=== PATIENT | female | born 1965 | race Caucasian/White ===

== ENCOUNTER 2018-07-21 10:20 | Emergency (ER) | payer MEDICARE ==
--- NOTE | 2018-07-21 11:13 | ER Document Report ---
ED Medical Screen (RME) - General Chief Complaint: Bloody Stools Stated Complaint: BLOOD IN STOOL/ABDOMINAL PRESSURE Time Seen by Provider: 07/21/18 10:26 Notes: 53-year-old female to the emergency department complaining of diffuse abdominal pain. Started yesterday. Continues today. Had several episodes of bloody stools today as well. No prior history of colon cancer. No prior history of diverticulitis. I have greeted and performed a rapid initial assessment of this patient. A comprehensive ED assessment and evaluation of the patient, analysis of test results and completion of the medical decision making process will be conducted by additional ED providers. TRAVEL OUTSIDE OF THE [place] IN LAST 30 DAYS: No - Related Data Allergies/Adverse Reactions: No Known Allergies Allergy (Unverified 07/21/18 10:24) Past Medical History - Social History Chew tobacco use (# tins/day): No Frequency of alcohol use: None Drug Abuse: None Renal/ Medical History: Denies: Hx Peritoneal Dialysis GI Medical History: Reports: Hx Gastroesophageal Reflux Disease Musculoskeltal Medical History: Reports Hx Arthritis Past Surgical History: Reports: Hx Genitourinary Surgery - bladder tac, Hx Hysterectomy Physical Exam - Vital signs Vitals: Temp Pulse Resp BP Pulse Ox 98.1 F 71 20 130/75 H 95 07/21/18 10:56 07/21/18 10:56 07/21/18 10:56 07/21/18 10:56 07/21/18 10:56 Course - Vital Signs Vital signs: Temp Pulse Resp BP Pulse Ox 98.1 F 71 20 130/75 H 95 07/21/18 10:56 07/21/18 10:56 07/21/18 10:56 07/21/18 10:56 07/21/18 10:56
[2018-07-21 11:40] LABS: ABSOLUTE BASOPHILS # (AUTO) 0.1 10^3/uL (0.0-0.2); ABSOLUTE EOSINOPHILS # (AUTO) 0.2 10^3/uL (0.0-0.6); ABSOLUTE LYMPHOCYTES (AUTO) 2.5 10^3/uL (0.5-4.7); ABSOLUTE MONOCYTES (AUTO) 0.8 10^3/uL (0.1-1.4); ABSOLUTE NEUT (AUTO) 6.3 10^3/uL (1.7-8.2); BASOPHILS % (AUTO) 0.7 % (0-2); EOSINOPHILS % (AUTO) 2.3 % (0-6); HEMOGLOBIN 14.9 g/dL (12.0-15.5); MEAN CORPUSCULAR HEMOGLOBIN 32.6 pg (27.0-33.4); MEAN CORPUSCULAR HGB CONC 33.9 g/dL (32.0-36.0); MEAN CORPUSCULAR VOLUME 96 fl (80-97); PLATELET COUNT 265 10^3/uL (150-450); RED BLOOD COUNT 4.57 10^6/uL (3.72-5.28); RED CELL DISTRIBUTION WIDTH 14.9 % (11.5-14.0); TOTAL CELLS COUNTED % (AUTO) 100 %; WHITE BLOOD COUNT 9.9 10^3/uL (4.0-10.5)
[2018-07-21 11:56] LABS: APPEARANCE,URINE CLEAR; BILIRUBIN,URINE NEGATIVE (NEGATIVE); COLOR,URINE STRAW; GLUCOSE, URINE NEGATIVE (NEGATIVE); KETONES,URINE NEGATIVE (NEGATIVE); LEUKOCYTE ESTERASE,URINE NEGATIVE (NEGATIVE); NITRITE,URINE NEGATIVE (NEGATIVE); PROTEIN,URINE NEGATIVE (NEGATIVE); URINE SPECIFIC GRAVITY 1.003; UROBILINOGEN,URINE NEGATIVE mg/dL (<2.0)
[2018-07-21 11:57] LABS: ALANINE AMINOTRANSFERASE 16 U/L (9-52); ALBUMIN 4.6 g/dL (3.5-5.0); ALKALINE PHOSPHATASE 96 U/L (38-126); ANION GAP 11 (5-19); ASPARTATE AMINO TRANSFERASE 21 U/L (14-36); BILIRUBIN,DIRECT 0.2 mg/dL (0.0-0.4); BILIRUBIN,TOTAL 0.4 mg/dL (0.2-1.3); BLOOD UREA NITROGEN 10 mg/dL (7-20); CALCIUM 10.1 mg/dL (8.4-10.2); CARBON DIOXIDE 28 mmol/L (22-30); CHLORIDE 108 mmol/L (98-107); GLUCOSE 93 mg/dL (75-110); LIPASE 263.1 U/L (23-300); POTASSIUM 4.4 mmol/L (3.6-5.0); SODIUM 147.4 mmol/L (137-145); TOTAL PROTEIN 7.4 g/dL (6.3-8.2)
--- NOTE | 2018-07-21 14:18 | RADIOLOGY REPORT (SQ) ---
EXAM DESCRIPTION: CT ABD/PELVIS WITH IV ORAL COMPLETED DATE/TIME: 07/21/2018 2:00 pm REASON FOR STUDY: diffuse abd pain and rectal bleeding COMPARISON: None. TECHNIQUE: CT scan of the abdomen and pelvis performed using helical scanning technique with dynamic intravenous contrast injection. With oral contrast. Images reviewed with lung, soft tissue, and bon e windows. Reconstructed coronal and sagittal MPR images reviewed. Delayed images for evaluation of t he urinary system also acquired. All images stored on PACS. All CT scanners at this facility use dose modulation, iterative reconstruction, and/or weight based d osing when appropriate to reduce radiation dose to as low as reasonably achievable (ALARA). [facility]: Dose Right [facility]: CareDose [facility]: Dose Right [facility]: Teradose 4D [facility]: RayV CONTRAST TYPE AND DOSE: contrast/concentration: Isovue 350.00 mg/ml; Total Contrast Delivered: 98.0 ml; Total Saline Delivered: 70.0 ml RENAL FUNCTION: GFR > 60. RADIATION DOSE: CT Rad equipment meets quality standard of care and radiation dose reduction techniq ues were employed. CTDIvol: 17.5 - 19.8 mGy. DLP: 2153 mGy-cm.. LIMITATIONS: None. FINDINGS: LOWER CHEST: 4.5 mm pulmonary nodule left base. LIVER: Normal size. No masses. No dilated ducts. SPLEEN: Normal size. No focal lesions. PANCREAS: No masses. No significant calcifications. No adjacent inflammation or peripancreatic fluid collections. Pancreatic duct not dilated. GALLBLADDER: No identified stones by CT criteria. No inflammatory changes to suggest cholecystitis. ADRENAL GLANDS: No significant masses or asymmetry. RIGHT KIDNEY AND URETER: No solid masses. No significant calcifications. No hydronephrosis or hyd roureter. LEFT KIDNEY AND URETER: No solid masses. No significant calcifications. No hydronephrosis or hydr oureter. AORTA AND VESSELS: No aneurysm. No dissection. Renal arteries, SMA, celiac without stenosis. RETROPERITONEUM: No retroperitoneal adenopathy, hemorrhage or masses. BOWEL AND PERITONEAL CAVITY: No masses or inflammatory changes. No free fluid or peritoneal masses. APPENDIX: Normal. PELVIS: No mass. No free fluid. Normal bladder. ABDOMINAL WALL: No masses. No hernias. BONES: No significant or acute findings. OTHER: No other significant finding. IMPRESSION: NO SIGNIFICANT OR ACUTE FINDING IN THE ABDOMEN OR PELVIS ON CT SCAN WITH IV and oral CON TRAST. 4.5 mm pulmonary nodule left base. TECHNICAL DOCUMENTATION: JOB ID: [id number] Quality ID # [id number]: Final reports with documentation of one or more dose reduction techniques (e.g., Au tomated exposure control, adjustment of the mA and/or kV according to patient size, use of iterative reconstruction technique) 2010 [employer]- All Rights Reserved Reading location - IP/workstation name: [email or web address]
--- NOTE | 2018-07-21 15:10 | ER Document Report ---
ED General - General Chief Complaint: Bloody Stools Stated Complaint: BLOOD IN STOOL/ABDOMINAL PRESSURE Time Seen by Provider: 07/21/18 10:26 TRAVEL OUTSIDE OF THE [place] IN LAST 30 DAYS: No - HPI Patient complains to provider of: Blood in stool abdominal pressure Notes: Patient coming in for evaluation of of blood in her stool and abdominal pressure. Patient does state that he recently returned from a cruise going to [place] and to the [facility]. Patient significant other endorses having some diarrhea however this is nonbloody. Patient states mostly abdominal cramping and blood in her stools stool was hard with blood patient does have history of hemorrhoids. Patient otherwise is resting comfortably upon my evaluation denies any fevers chills nausea vomiting denies overt diarrhea. Patient states colonoscopy approximately over 5 years ago with no critical findings found - Related Data Allergies/Adverse Reactions: No Known Allergies Allergy (Unverified 07/21/18 10:24) Past Medical History - Social History Smoking Status: Current Every Day Smoker Chew tobacco use (# tins/day): No Frequency of alcohol use: None Drug Abuse: None Family History: Reviewed & Not Pertinent Patient has suicidal ideation: No Patient has homicidal ideation: No Renal/ Medical History: Denies: Hx Peritoneal Dialysis GI Medical History: Reports: Hx Gastroesophageal Reflux Disease Musculoskeletal Medical History: Reports Hx Arthritis Past Surgical History: Reports: Hx Genitourinary Surgery - bladder tac, Hx Hysterectomy Review of Systems - Review of Systems Constitutional: No symptoms reported EENT: No symptoms reported Cardiovascular: No symptoms reported Respiratory: No symptoms reported Gastrointestinal: Abdominal pain Genitourinary: No symptoms reported Female Genitourinary: No symptoms reported Musculoskeletal: No symptoms reported Skin: No symptoms reported Hematologic/Lymphatic: No symptoms reported Neurological/Psychological: No symptoms reported -: Yes All other systems reviewed and negative Physical Exam - Vital signs Vitals: Temp Pulse Resp BP Pulse Ox 98.1 F 71 20 130/75 H 95 07/21/18 10:56 07/21/18 10:56 07/21/18 10:56 07/21/18 10:56 07/21/18 10:56 Interpretation: Normal - General General appearance: Appears well, Alert - HEENT Head: Normocephalic, Atraumatic Eyes: Normal Pupils: PERRL - Respiratory Respiratory status: No respiratory distress Chest status: Nontender Breath sounds: Normal Chest palpation: Normal - Cardiovascular Rhythm: Regular Heart sounds: Normal auscultation Murmur: No - Abdominal Inspection: Normal Distension: No distension Bowel sounds: Normal Tenderness: Nontender Organomegaly: No organomegaly - Rectal Notes: Multiple hemorrhoids seen - Back Back: Normal, Nontender - Extremities General upper extremity: Normal inspection, Nontender, Normal color, Normal ROM , Normal temperature General lower extremity: Normal inspection, Nontender, Normal color, Normal ROM , Normal temperature, Normal weight bearing. No: Treasure's sign - Neurological Neuro grossly intact: Yes Cognition: Normal Orientation: AAOx4 [employer] Coma Scale Eye Opening: Spontaneous [place] Coma Scale Verbal: Oriented [employer] Coma Scale Motor: Obeys Commands Calin Coma Scale Total: 15 Speech: Normal Motor strength normal: LUE, RUE, LLE, RLE Sensory: Normal - Psychological Associated symptoms: Normal affect, Normal mood - Skin Skin Temperature: Warm Skin Moisture: Dry Skin Color: Normal Course - Re-evaluation Re-evalutation: 07/21/18 18:56 Hemoglobin stable at this time. Patient with no further bloody bowel movements here in the ER. CT scans not show any significant pathology. I highly recommend that the patient follow-up with gastroenterology more likely viral illness for the cause of her abdominal pain and more likely bleeding coming from hemorrhoids. Recommended hemorrhoid cream along with Bentyl patient states understanding agrees this plan discharged home. - Vital Signs Vital signs: Temp Pulse Resp BP Pulse Ox 97.6 F 62 16 108/76 98 07/21/18 15:10 07/21/18 15:10 07/21/18 15:10 07/21/18 15:10 07/21/18 15:10 - Laboratory Result Diagrams: 07/21/18 11:25 07/21/18 11:25 Laboratory results interpreted by me: 07/21/18 07/21/18 07/21/18 11:25 11:25 11:25 RDW 14.9 H Sodium 147.4 H Chloride 108 H Urine Blood MODERATE H Discharge - Discharge Clinical Impression: Blood in stool, Acute hemorrhoid Abdominal pain Qualifiers: Abdominal location: generalized Qualified Code(s): R10.84 - Generalized abdominal pain Condition: Good Disposition: HOME, SELF-CARE Instructions: Abdominal Pain ([facility]), Diarrhea, Nonspecific ([facility]), Family Physicians / Practices, Gastroenterology, [facility] Hemorrhoid Cream ([facility]), Hemorrhoids ([facility]), Rectal Bleeding, Unclear Cause ([facility]) Additional Instructions: At this time your CAT scan does not show any signs of acute infection no diverticulitis no colitis. Your blood work does not show any signs of infectious etiology for your abdominal pain also shows a normal hemoglobin. Your physical examination does show significant amount of hemorrhoids around the anal region which may likely be the cause of some of the blood that you are seeing when you have a bowel movement. I do believe he probably have a viral cause of your stomach pain due to your recent trip. I recommend starting often [id number] Preparation H to treat her hemorrhoids. If you continue to have pain with defecation in the next 48-72 hours would recommend having the prescription filled. Also recommend taking [id number] stool softener. He can take Tylenol Motrin for your abdominal pain. Bentyl for abdominal cramps. Follow-up with a primary care physician and [facility] administrator Prescriptions: Dicyclomine HCl [Bentyl 20 mg Tablet] 20 mg PO QID #40 tablet Hydrocortisone/Pramoxine [Analpram Hc 2.5% Cream] 30 gm RC BID #1 cream.appl
[2018-07-21 15:14] VITALS: BP 108/76
== END 2018-07-21 15:21 | disposition home or self-care (01) ==
LOC: ER 10:20
DX: K92.1 Melena (principal); K64.9 Unspecified hemorrhoids; R10.84 Generalized abdominal pain; R19.8 Other specified symptoms and signs involving the digestive system and abdomen; F17.200 Nicotine dependence, unspecified, uncomplicated
CPT/HCPCS: 36415; 74177; 80053; 81001; 83690; 85025; 99284

== ENCOUNTER 2018-07-30 23:17 | Emergency (ER) | payer MEDICARE ==
[2018-07-31] MEDS ORDERED: DEXAMETHASONE SOD PHOS INJ 10 MG/1 ML VIAL IM ONE (00:14)
[2018-07-31] MEDS ORDERED: KETOROLAC TROMETHAMINE 60 MG/2 ML SDV IM ONE (00:14)
--- NOTE | 2018-07-31 00:16 | ER Document Report ---
HPI - HPI Patient complains to provider of: right shoulder pain Time Seen by Provider: 07/31/18 00:07 Onset: Other - 2 days Onset/Duration: Sudden Quality of pain: Achy, Throbbing Severity: Severe Pain Level: 4 Context: Patient presents emergency department with complaints of right shoulder pain. Patient reports she was laying on the couch leaning on her arm when all of a sudden her shoulder started hurting. Denies trauma. Denies fever vomiting diarrhea. Reports the pain is severe in her right shoulder and runs down past her elbow to her hand. Patient reports pain with any movement. Denies past history of trauma. Patient is right-hand dominant. Reports she is taking over- the-counter pain medication along with her hydrocodone for the pain and nothing is helped. Associated Symptoms: None Exacerbated by: Movement Relieved by: Denies Similar symptoms previously: No Recently seen / treated by doctor: No Past Medical History - General Information source: Patient Last Menstrual Period: Nephrectomy - Social History Smoking Status: Current Every Day Smoker Cigarette use (# per day): Yes Frequency of alcohol use: None Drug Abuse: None Lives with: Family Family History: Reviewed & Not Pertinent Patient has suicidal ideation: No Patient has homicidal ideation: No - Medical History Medical History: Other - Regional pain syndrome Renal/ Medical History: Denies: Hx Peritoneal Dialysis GI Medical History: Reports: Hx Gastroesophageal Reflux Disease Musculoskeletal Medical History: Reports Hx Arthritis Past Surgical History: Reports: Hx Genitourinary Surgery - bladder tac, Hx Hysterectomy Vertical Provider Document - CONSTITUTIONAL Agree With Documented VS: Yes Exam Limitations: No Limitations General Appearance: WD/WN, No Apparent Distress - Winces when the arm is moved - INFECTION CONTROL TRAVEL OUTSIDE OF THE [place] IN LAST 30 DAYS: No - HEENT HEENT: Atraumatic, Normocephalic - NECK Neck: Normal Inspection, Supple - RESPIRATORY Respiratory: No Respiratory Distress - CARDIOVASCULAR Cardiovascular: Regular Rate - MUSCULOSKELETAL/EXTREMETIES Musculoskeletal/Extremeties: Tender - pt complains of pain with any type of movement to her right arm. supination/ pronation, no erythema no swelling no warmth good radial pulse, no obvious deformity she reports she cannot actively move her arm above her head, arm passively moved above her head, neg drop arm, pt able to smoothly lower her arm - NEURO Level of Consciousness: Awake, Alert, Appropriate - DERM Adult Front & Back Diagram: 1 - reports ttp and movement Course - Re-evaluation Re-evalutation: 07/31/18 00:22 She is new to the area. She was instructed on orthopedics to follow-up with. She was also instructed to follow-up with her primary care provider. She will be treated with Toradol and a shot of Decadron for pain. She verbalized understanding for all instructions Dictation of this chart was performed using voice recognition software; therefore, there may be some unintended grammatical errors. - Vital Signs Vital signs: Temp Pulse Resp BP Pulse Ox 97.6 F 69 16 124/79 98 07/30/18 23:57 07/30/18 23:57 07/30/18 23:57 07/30/18 23:57 07/30/18 23:57 Discharge - Discharge Clinical Impression: Right shoulder pain Qualifiers: Chronicity: acute Qualified Code(s): M25.511 - Pain in right shoulder Condition: Stable Disposition: HOME, SELF-CARE Instructions: Steroid Medication Injection, Toradol Injection ([facility]) Additional Instructions: *You have been evaluated for right shoulder pain *Rest your shoulder, ice packs- 20 minutes on, 20 minutes off *Follow up with orthopedics tomorrow-call for an appointment *Take your pain medication as prescribed *Return to ED for worsening condition, changes, needs Referrals: [facility] [Provider Group] - Follow up tomorrow
[2018-07-31 02:24] VITALS: BP 114/75
== END 2018-07-31 01:00 | disposition home or self-care (01) ==
LOC: ER 23:17
DX: M25.511 Pain in right shoulder (principal); F17.210 Nicotine dependence, cigarettes, uncomplicated
CPT/HCPCS: 99283; 96372; J1885; J1100

== ENCOUNTER 2019-02-11 18:45 | Emergency (ER) | payer MEDICARE ==
--- NOTE | 2019-02-11 20:23 | ER Document Report ---
ED Medical Screen (RME) - General Chief Complaint: Abdominal Pain Stated Complaint: BACK PAIN Time Seen by Provider: 02/11/19 20:16 Notes: 53 year old female chief complaint of worsening swelling and pain of the abdomen with developing pain in her flank on both sides for the past 5 days or so. States swelling significantly increased today. Denies vomiting, had a loose bowel movement this morning, denies fever. History includes tubal ligation, hysterectomy, denies abdominal surgeries otherwise. TRAVEL OUTSIDE OF THE [place] IN LAST 30 DAYS: No - Related Data Allergies/Adverse Reactions: No Known Allergies Allergy (Unverified 07/21/18 10:24) Past Medical History - Social History Frequency of alcohol use: None Drug Abuse: None Renal/ Medical History: Denies: Hx Peritoneal Dialysis GI Medical History: Reports: Hx Gastroesophageal Reflux Disease Musculoskeltal Medical History: Reports Hx Arthritis Past Surgical History: Reports: Hx Genitourinary Surgery - bladder tac, Hx Hysterectomy, Hx Tubal Ligation Physical Exam - Vital signs Vitals: Temp Pulse Resp BP Pulse Ox 98.4 F 83 18 137/73 H 96 02/11/19 18:49 02/11/19 18:49 02/11/19 18:49 02/11/19 18:49 02/11/19 18:49 - Abdominal Distension: Distended Tenderness: Tender - Generalized mid abdominal tenderness without specific area of guarding. No noted hernia/incarcerated hernia Course - Re-evaluation Re-evalutation: I have greeted and performed a rapid initial assessment of this patient. A comprehensive ED assessment and evaluation of the patient, analysis of test results and completion of the medical decision making process will be conducted by additional ED providers. - Vital Signs Vital signs: Temp Pulse Resp BP Pulse Ox 98.4 F 83 18 137/73 H 96 02/11/19 18:49 02/11/19 18:49 02/11/19 18:49 02/11/19 18:49 02/11/19 18:49
[2019-02-11 21:05] LABS: AMORPHOUS SEDIMENT,URINE TRACE /HPF; APPEARANCE,URINE CLOUDY; BILIRUBIN,URINE NEGATIVE (NEGATIVE); COLOR,URINE YELLOW; GLUCOSE, URINE NEGATIVE (NEGATIVE); KETONES,URINE NEGATIVE (NEGATIVE); LEUKOCYTE ESTERASE,URINE NEGATIVE (NEGATIVE); NITRITE,URINE NEGATIVE (NEGATIVE); PROTEIN,URINE NEGATIVE (NEGATIVE); URINE SPECIFIC GRAVITY 1.024; UROBILINOGEN,URINE NEGATIVE mg/dL (<2.0)
--- NOTE | 2019-02-11 21:05 | RADIOLOGY REPORT (SQ) ---
EXAM DESCRIPTION: [facility]: XR ABDOMEN SUPINE AND ERECT WITH CHEST (ABD ACUTE SERIES) Views: 3 CLINICAL HISTORY: 53 years Female, abd swelling and pain COMPARISON: None. FINDINGS: AP Chest: Lungs are clear without infiltrate, effusion, pneumothorax. Mediastinum is within normal limits for positioning. No acute bone findings. Supine and erect AP abdomen: Bowel gas pattern is normal, with no air-fluid levels or small bowel distention. No free intraperitoneal air. No suspicious calcifications. IMPRESSION: 1. No acute findings.
[2019-02-11 21:56] LABS: ABSOLUTE BASOPHILS # (AUTO) 0.1 10^3/uL (0.0-0.2); ABSOLUTE EOSINOPHILS # (AUTO) 0.2 10^3/uL (0.0-0.6); ABSOLUTE LYMPHOCYTES (AUTO) 3.8 10^3/uL (0.5-4.7); ABSOLUTE MONOCYTES (AUTO) 0.9 10^3/uL (0.1-1.4); ABSOLUTE NEUT (AUTO) 4.7 10^3/uL (1.7-8.2); BASOPHILS % (AUTO) 1.2 % (0-2); EOSINOPHILS % (AUTO) 2.5 % (0-6); HEMATOCRIT 43.2 % (36.0-47.0); HEMOGLOBIN 14.7 g/dL (12.0-15.5); LYMPHOCYTES % (AUTO) 39.3 % (13-45); MEAN CORPUSCULAR HGB CONC 34.1 g/dL (32.0-36.0); MEAN CORPUSCULAR VOLUME 94 fl (80-97); MONOCYTES % (AUTO) 8.8 % (3-13); PLATELET COUNT 253 10^3/uL (150-450); RED BLOOD COUNT 4.59 10^6/uL (3.72-5.28); SEGMENTED NEUTROPHILS % (AUTO) 48.2 % (42-78); TOTAL CELLS COUNTED % (AUTO) 100 %; WHITE BLOOD COUNT 9.7 10^3/uL (4.0-10.5)
[2019-02-11 22:15] LABS: ALANINE AMINOTRANSFERASE 17 U/L (9-52); ALBUMIN 4.3 g/dL (3.5-5.0); ALKALINE PHOSPHATASE 86 U/L (38-126); ANION GAP 8 (5-19); ASPARTATE AMINO TRANSFERASE 21 U/L (14-36); BILIRUBIN,DIRECT 0.3 mg/dL (0.0-0.4); BILIRUBIN,TOTAL 0.4 mg/dL (0.2-1.3); BLOOD UREA NITROGEN 16 mg/dL (7-20); CALCIUM 9.6 mg/dL (8.4-10.2); CARBON DIOXIDE 29 mmol/L (22-30); CHLORIDE 107 mmol/L (98-107); GLUCOSE 87 mg/dL (75-110); LIPASE 397.1 U/L (23-300); POTASSIUM 4.4 mmol/L (3.6-5.0); SODIUM 144.4 mmol/L (137-145); TOTAL PROTEIN 6.8 g/dL (6.3-8.2)
[2019-02-11] MEDS ORDERED: FAMOTIDINE 20 MG TABLET PO ONE (22:32)
[2019-02-11] MEDS ORDERED: LIDOCAINE 2% VISCOUS SOLN 20 ML UDCUP PO ONE (22:32)
[2019-02-11] MEDS ORDERED: MAG HYDROX/AL HYDROX/SIMETH SUSP 30 ML UDCUP PO ONE (22:32)
[2019-02-11] MEDS ORDERED: SUCRALFATE 1 GM TABLET PO ONE (22:32)
[2019-02-11] MEDS ORDERED: METOCLOPRAMIDE HCL ORAL SOLN 10 MG/10 ML UDCUP PO ONE (22:32)
--- NOTE | 2019-02-11 22:38 | ER Document Report ---
ED General - General Chief Complaint: Abdominal Pain Stated Complaint: BACK PAIN Time Seen by Provider: 02/11/19 20:16 Notes: Patient is a 53-year-old female with past surgical history of hysterectomy, no chronic medical problems, presents complaining of abdominal bloating and fullness for the past 5 days. Patient states her symptoms started gradually, have been worsening since onset. Describes it as a sensation of the abdomen being bloated, full of gas. Denies any focal areas of abdominal pain. Symptoms are regarded as being moderate to severe in intensity. No obvious improving factor although notes eating or drinking seems to worsen the discomfort. States "I just feel really full". Denies associated chest pain, vomiting, diaphoresis, and notes that she has had a soft bowel movement earlier this morning. Has a long-standing history of constipation but states this does feel somewhat different. Has not seen her general physician regarding today's concerns. TRAVEL OUTSIDE OF THE [place] IN LAST 30 DAYS: No - Related Data Allergies/Adverse Reactions: mushroom Allergy (Verified 02/11/19 22:41) Past Medical History - General Information source: Patient - Social History Smoking Status: Current Every Day Smoker Frequency of alcohol use: None Drug Abuse: None Lives with: Spouse/Significant other Family History: Reviewed & Not Pertinent Patient has suicidal ideation: No Patient has homicidal ideation: No Renal/ Medical History: Denies: Hx Peritoneal Dialysis GI Medical History: Reports: Hx Gastroesophageal Reflux Disease Musculoskeletal Medical History: Reports Hx Arthritis Past Surgical History: Reports: Hx Genitourinary Surgery - bladder tac, Hx Hysterectomy, Hx Tubal Ligation Review of Systems - Review of Systems Notes: Constitutional: Negative for fever. HENT: Negative for sore throat. Eyes: Negative for visual changes. Cardiovascular: Negative for chest pain. Respiratory: Negative for shortness of breath. Gastrointestinal: Positive for abdominal fullness and nausea Genitourinary: Negative for dysuria. Musculoskeletal: Negative for back pain. Skin: Negative for rash. Neurological: Negative for headaches, weakness or numbness. 10 point ROS negative except as marked above and in HPI. Physical Exam - Vital signs Vitals: Temp Pulse Resp BP Pulse Ox 98.4 F 83 18 137/73 H 96 02/11/19 18:49 02/11/19 18:49 02/11/19 18:49 02/11/19 18:49 02/11/19 18:49 Interpretation: Normal Notes: PHYSICAL EXAMINATION: GENERAL: Well-appearing, well-nourished and in no acute distress. HEAD: Atraumatic, normocephalic. EYES: Pupils equal round and reactive to light, extraocular movements intact, sclera anicteric, conjunctiva are normal. ENT: nares patent, oropharynx clear without exudates. Moist mucous membranes. NECK: Normal range of motion, supple without lymphadenopathy LUNGS: Breath sounds clear to auscultation bilaterally and equal. No wheezes rales or rhonchi. HEART: Regular rate and rhythm without murmurs ABDOMEN: Soft, nontender, normoactive bowel sounds. No guarding, no rebound. No masses appreciated. EXTREMITIES: Normal range of motion, no pitting or edema. No cyanosis. NEUROLOGICAL: No focal neurological deficits. Moves all extremities spontaneo usly and on command. PSYCH: Normal mood, normal affect. SKIN: Warm, Dry, normal turgor, no rashes or lesions noted. Course - Re-evaluation Re-evalutation: 02/11/19 22:36 Patient presents with abdominal fullness worsened by eating and a feeling of being very bloated most consistent with likely gastritis. Patient has no focal abdominal tenderness on examination. Lipase is not significantly elevated. Symptoms are worse by acidic food intake. She no LFT changes. Based on history and exam, I do not suspect ACS, pulmonary embolus, SBO, mesenteric ischemia, acute pancreatitis, biliary pathology, or an abdominal aortic dissection. 2 view abdomen without evidence of obstruction or perforation. Patient has had improvement of symptoms here with a GI cocktail. At this time will discharge with return precautions and follow-up recommendations. Verbal discharge instructions given a the bedside and opportunity for questions given. Medication warnings reviewed. Patient is in agreement with this plan and has verbalized understanding of return precautions and the need for primary care follow-up in the next 24-72 hours. - Vital Signs Vital signs: Temp Pulse Resp BP Pulse Ox 97.6 F 63 21 H 122/66 96 02/11/19 23:04 02/11/19 23:04 02/11/19 23:04 02/11/19 23:04 02/11/19 23:04 - Laboratory Result Diagrams: 02/11/19 21:48 02/11/19 21:48 Laboratory results interpreted by me: 02/11/19 02/11/19 20:28 21:48 Lipase 397.1 H Urine Blood MODERATE H - Diagnostic Test Radiology reviewed: Image reviewed, Reports reviewed Radiology results interpreted by me: 02/11/19 22:38 Abdominal two-view: No evidence of obstruction or perforation Discharge - Discharge Clinical Impression: Abdominal bloating, Nausea Condition: Good Disposition: HOME, SELF-CARE Additional Instructions: Your symptoms appear to be most consistent with stomach or upper intestinal irritation. Please begin taking famotidine 40 mg in the morning and 40 mg at night. Take Carafate prior to meals. You may also take medicine such as Pepto- Bismol or Tums to assist with your pain. Please return to emergency department immediately if you have worsening of your pain, shortness of breath, vomiting, become unable to exert yourself due to pain or difficulty breathing, you pass out, or have any pain that radiates into your arms, jaw, or back. Please also return if you have any additional symptoms that are concerning to you. As we have discussed, the most important thing is lifestyle changes. You need to avoid smoking, sodas, tea, coffee, alcohol, spicy foods, and acidic foods such as citrus fruits, tomato based products, berries, and most fruit juices. Prescriptions: Famotidine 40 mg PO BID #60 tablet Sucralfate [Carafate 1 gm Tablet] 1 gm PO ACHS #120 tablet
[2019-02-11 23:05] VITALS: BP 122/66
== END 2019-02-11 23:04 | disposition home or self-care (01) ==
LOC: ER 18:45
DX: R14.0 Abdominal distension (gaseous) (principal); R11.0 Nausea; F17.200 Nicotine dependence, unspecified, uncomplicated; Z90.710 Acquired absence of both cervix and uterus; Z87.19 Personal history of other diseases of the digestive system; Z91.018 Allergy to other foods
CPT/HCPCS: 99283; 36415; 83690; 85025; 80053; 81001; 74022; A9270 ×3; J3490